=== PATIENT | female | born 1970 | race Caucasian/White ===

== ENCOUNTER 2017-10-16 12:16 | Emergency (ER) | payer SELFPAY ==
[~2017-10-16] VITALS: Ht 160 cm; Wt 81.6 kg
[2017-10-16] MEDS ORDERED: GABA-488 PO (12:37)
[2017-10-16] MEDS ORDERED: ESCI20TA PO (12:37)
[2017-10-16] MEDS ORDERED: DULO60CA6 PO (12:37)
[2017-10-16] MEDS ORDERED: ACHD5005 PO (12:37)
--- NOTE | 2017-10-16 12:57 | ED Fall/Injury ---
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 patient c/o pain in her buttocks also Source: patient Exam Limitations: no limitations History of Present Illness Date Seen by Provider: Oct 16, 2017 Time Seen by Provider: 12:54 Initial Comments To ER per private vehicle with reports of falling off her porch about 3 hours ago. She slipped as the porch was wet. Complains of pain to the right shoulder in the low back. Low back pain radiates to the right buttock and posterior thigh. By the pain in her chest. She reports she is diffusely sore and achy and feels like she just tensed up all over she states. She did hit the back of her head but denies loss of consciousness, headache, nausea or neck pain. Occurred: this morning Severity: moderate Allergies and Home Medications Allergies Coded Allergies: No Known Drug Allergies (Unverified , 04/19/11) Home Medications Duloxetine HCl 60 Mg Capsule.dr, 60 MG PO, (Reported) Escitalopram Oxalate 20 Mg Tablet, 20 MG PO, (Reported) Gabapentin 300 Mg Capsule, 300 MG PO TID, (Reported) Hydrocodone Bit/Acetaminophen 1 Tab Tab, 1 TAB PO, (Reported) Constitutional: see HPI Eyes: No Symptoms Reported Ears, Nose, Mouth, Throat: no symptoms reported Respiratory: no symptoms reported Cardiovascular: no symptoms reported Genitourinary: no symptoms reported Musculoskeletal: see HPI Skin: no symptoms reported Psychiatric/Neurological: No Symptoms Reported Past Tlgcanm-Ohrvvy-Evphzx Hx Patient Social History Alcohol Use: Occasionally Uses Recreational Drug Use: Yes Drug of Choice: thc Smoking Status: Current Everyday Smoker Recent Foreign Travel: No Contact w/Someone Who Travel: No Recent Infectious Disease Expo: No Physical Abuse: No Sexual Abuse: No Psychosocial Suicide Risk Score: 0 Physical Exam Vital Signs Vital Sign - Last 12Hours 10/16/17 12:32 Temp 98.4 Pulse 79 Resp 18 B/P (MAP) 141/99 (113) Pulse Ox 99 Capillary Refill : Less Than 3 Seconds General Appearance: WD/WN, no apparent distress HEENT: PERRL/EOMI, normal ENT inspection Neck: non-tender, full range of motion Respiratory: normal breath sounds, no respiratory distress, no accessory muscle use Gastrointestinal: normal bowel sounds, non tender, soft Extremities: normal range of motion, non-tender, other (there is no ecchymosis abrasion or erythema to the shoulder or the back. No hematoma to the scalp.) Neurologic/Psychiatric: alert, normal mood/affect, oriented x 3 Skin: normal color, warm/dry [place] Coma Score Best Eye Response: (4) Open Spontaneously Best Verbal Response: (5) Oriented Best Motor Response: (6) Obeys Commands Rudi Total: 15 Progress/Results/Core Measures Results/Orders My Orders Orders - DERECK KING APRN Ketorolac Injection (Toradol Injection) (10/16/17 13:00) Orphenadrine Injection (Norflex Injectio (10/16/17 13:00) Shoulder, Right, 3 Views (10/16/17 12:53) Chest Pa/Lat (2 View) (10/16/17 12:53) Ct Lumbar Spine Wo (10/16/17 12:53) Saline Lock/Iv-Start (10/16/17 12:53) Medications Given in ED Current Medications Medications Dose Ordered Sig/Ventura Route Start Time Stop Time Status Last Admin Dose Admin Ketorolac Tromethamine 30 mg ONCE ONCE IVP 10/16/17 13:00 10/16/17 13:01 DC 10/16/17 13:05 30 MG Vital Signs/I&O Vital Sign - Last 12Hours 10/16/17 12:32 Temp 98.4 Pulse 79 Resp 18 B/P (MAP) 141/99 (113) Pulse Ox 99 Blood Pressure Mean: 113 Diagnostic Imaging Diagonstic Imaging: CT Comments NAME: ED[facility] REC#: [id number] PT STATUS: REG ER : 1970 PHYSICIAN: DERECK KING APRN ADMIT DATE: 10/16/17/ER Draft Date of Exam:10/16/17 CT LUMBAR SPINE WO PROCEDURE: CT lumbar spine without contrast. TECHNIQUE: Multiple contiguous axial images were obtained through the lumbar spine without the use of intravenous contrast. Sagittal and coronal reformations were then performed. INDICATION: Followup for 3 hours ago. Back pain. FINDINGS: CT lumbar spine with sagittal and coronal reformatted imaging shows good alignment of vertebral bodies. Body height is well maintained without evidence of compression fractures. There is chronic disc herniation at L4-L5 with calcification of the annulus. This is causing moderate encroachment upon the lateral recesses bilaterally. There is considerable facet and ligamentous hypertrophy as well as at this level. There is a small chronic central disc herniation at L5-S1. There is hypertrophy of the facets and endplates which is causing a mild to moderate foraminal encroachment on the left. The surrounding soft tissues appear normal. IMPRESSION: 1. Long-standing disc herniation with calcification of the annulus of L4-L5 with associated facet and ligamentous hypertrophy causing moderate encroachment upon the lateral recesses. 2. Chronic disc herniation L5-S1 as well with facet and ligamentous hypertrophy and endplate hypertrophy causing mild to moderate encroachment upon the left neural foramen. 3. No evidence of acute fractures. Dictated on workstation # [id number] Dict: 10/16/17 1328 Trans: 10/16/17 1343 [facility] [id number] Interpreted by: NASIM MAJOR MD Electronically signed by: Departure Impression Impression: Primary Impression: Fall Disposition: 01 HOME, SELF-CARE Condition: Stable Departure-Patient Inst. Decision time for Depature: 12:56 Referrals: [facility] (PCP/Family) Primary Care Physician Patient Instructions: Contusion (DC) Add. Discharge Instructions: 1. Return to ER for any concerns 2. Follow-up with your doctor next week 3. All discharge instructions reviewed with patient and/or family. Voiced understanding. DEERCK KING APRN Oct 16, 2017 12:57
[2017-10-16] MEDS ORDERED: ORPHENADRINE 60 MG/2 ML (NORFLEX) AMP IVP ONE (13:00)
[2017-10-16] MEDS ORDERED: KETOROLAC 30 MG/ML VIAL IVP ONE (13:00)
--- NOTE | 2017-10-16 13:19 | Diagnostic Imaging Report ---
INDICATION: Fall from porch 3 hours ago. Back pain FINDINGS: PA and lateral chest show the lungs to be well-aerated. There are no infiltrates. No masses. No pneumothorax or pleural effusion. Heart is not enlarged. No bony fractures demonstrated. IMPRESSION: Normal PA and lateral chest. Dictated by: Dictated on workstation # [id number]
--- NOTE | 2017-10-16 13:24 | Diagnostic Imaging Report ---
INDICATION: Fall off a porch. Right shoulder pain. FINDINGS: Three views. There are no fractures or dislocations. The humeral head is in good alignment with the glenoid. AC joint shows good alignment. There is moderate hypertrophic degenerative change of the AC joint. There is small amount of calcification in the distal supraspinatus tendon. IMPRESSION: 1. No acute abnormalities. 2. Degenerative change of the AC joint as well as some calcific tendinopathy of the supraspinatus tendon. Dictated by: Dictated on workstation # [id number]
--- NOTE | 2017-10-16 13:43 | Diagnostic Imaging Report ---
PROCEDURE: CT lumbar spine without contrast. TECHNIQUE: Multiple contiguous axial images were obtained through the lumbar spine without the use of intravenous contrast. Sagittal and coronal reformations were then performed. INDICATION: Followup for 3 hours ago. Back pain. FINDINGS: CT lumbar spine with sagittal and coronal reformatted imaging shows good alignment of vertebral bodies. Body height is well maintained without evidence of compression fractures. There is chronic disc herniation at L4-L5 with calcification of the annulus. This is causing moderate encroachment upon the lateral recesses bilaterally. There is considerable facet and ligamentous hypertrophy as well as at this level. There is a small chronic central disc herniation at L5-S1. There is hypertrophy of the facets and endplates which is causing a mild to moderate foraminal encroachment on the left. The surrounding soft tissues appear normal. IMPRESSION: 1. Long-standing disc herniation with calcification of the annulus of L4-L5 with associated facet and ligamentous hypertrophy causing moderate encroachment upon the lateral recesses. 2. Chronic disc herniation L5-S1 as well with facet and ligamentous hypertrophy and endplate hypertrophy causing mild to moderate encroachment upon the left neural foramen. 3. No evidence of acute fractures. Dictated by: Dictated on workstation # [id number]
[2017-10-16 13:50] VITALS: BP 141/99
== END 2017-10-16 13:50 | disposition home or self-care (01) ==
LOC: EDUNIT# 12:16 → ER 12:17
DX: M25.511 Pain in right shoulder (principal); M54.5 Low back pain; M79.651 Pain in right thigh; R07.89 Other chest pain; F12.90 Cannabis use, unspecified, uncomplicated; F17.200 Nicotine dependence, unspecified, uncomplicated; W19.XXXA Unspecified fall, initial encounter
CPT/HCPCS: 71046; 72131; 73030; 96374; 96375; 99282

== ENCOUNTER → 2017-10-25 | Outpatient (CLI) | payer SELFPAY ==
[~2017-10-25] MED LIST: ACHD5005 PO; DULO60CA6 PO; ESCI20TA PO; GABA-488 PO
--- NOTE | 2017-10-25 10:06 | Diagnostic Imaging Report ---
PROCEDURE: CT head without contrast. TECHNIQUE: Multiple contiguous axial images were obtained through the brain without the use of intravenous contrast. INDICATION: Syncope and family history of seizures with recent fall. FINDINGS: The ventricles and sulci are within normal limits. There is no hydrocephalus or cerebral edema. There is no midline shift or mass effect. There is no intracranial mass, hemorrhage, or extra-axial fluid collection. The visualized paranasal sinuses and mastoid air cells are clear. There are no regional areas of decreased attenuation appreciated to suggest an acute CVA. IMPRESSION: No acute intracranial abnormality. Dictated by: Dictated on workstation # [id number]
== END ==
LOC: RAD 08:56
PROVIDERS: ATTEND Nurse Practitioner Community Health
DX: R55 Syncope and collapse (principal); Z87.828 Personal history of other (healed) physical injury and trauma; Z82.0 Family history of epilepsy and other diseases of the nervous system
CPT/HCPCS: 70450

== ENCOUNTER 2017-10-26 16:37 | Emergency (ER) | payer SELFPAY ==
[~2017-10-26] VITALS: Ht 160 cm; Wt 85.7 kg
--- OUTSIDE RECORDS SUMMARY | 2017-10-26 16:44 | XMS REPORT | Continuity of Care Document ---
Author Author [facility] Organization [facility] Address Unknown Phone Unavailable Allergies Active Description Code Type Severity Reaction Onset Reported/Identified Relationship to Patient Clinical Status Yes No Known Drug Allergies [id number] Drug Allergy Unknown N/A 04/19/2011 Medications There is no data. Problems Date Dx Coded Attending Type Code Diagnosis Diagnosed By 04/19/2011 Ot 276.50 04/19/2011 Ot 276.8 04/19/2011 Ot 780.2 04/19/2011 Ot 992.5 04/19/2011 Ot E000.8 04/19/2011 Ot E900.0 10/08/2015 Ot V76.12 10/17/2015 Ot V76.12 10/16/2017 AMARJIT TOLEDOP Ot S43.431A SUPERIOR GLENOID LABRUM LESION OF RIGHT 10/16/2017 AMARJIT TOLEDO COMMUNICATIONS OFFICER Ot X58.XXXA EXPOSURE TO OTHER SPECIFIED FACTORS, INI 10/16/2017 AMARJIT TOLEDO COMMUNICATIONS OFFICER Ot Y99.8 OTHER EXTERNAL CAUSE STATUS 10/16/2017 AMARJIT TOLEDO COMMUNICATIONS OFFICER Ot S43.431A SUPERIOR GLENOID LABRUM LESION OF RIGHT 10/16/2017 AMARJIT TOLEDO COMMUNICATIONS OFFICER Ot X58.XXXA EXPOSURE TO OTHER SPECIFIED FACTORS, INI 10/16/2017 AMARJIT TOLEDO COMMUNICATIONS OFFICER Ot Y99.8 OTHER EXTERNAL CAUSE STATUS 10/19/2017 DERECK KING APRN Ot F12.90 CANNABIS USE, UNSPECIFIED, UNCOMPLICATED 10/19/2017 DERECK KING ROTOR PLATE WASHER Ot F17.200 NICOTINE DEPENDENCE, UNSPECIFIED, UNCOMP 10/19/2017 DERECK KING APRN Ot M25.511 PAIN IN RIGHT SHOULDER 10/19/2017 DERECK KING APRN Ot M54.5 LOW BACK PAIN 10/19/2017 DERECK KING APRN Ot M79.651 PAIN IN RIGHT THIGH 10/19/2017 DERECK KING ROTOR PLATE WASHER Ot R07.89 OTHER CHEST PAIN 10/19/2017 DERECK KING APRN Ot W19.XXXA UNSPECIFIED FALL, INITIAL ENCOUNTER Procedures There is no data. Results There is no data. Encounters ACCT No. Visit Date/Time Discharge Status Pt. Type Provider Facility Loc./Unit Complaint [id number] 10/16/2017 12:17:00 10/16/2017 13:50:00 DIS Outpatient DERECK KING APRN [facility] ER FALL OFF PORCH, HEAD/BACK/ LEGS/ARMS INJ [id number] 10/17/2015 15:20:00 10/17/2015 23:59:59 CLS Outpatient AMARJIT TOLEDO [facility] RAD RTC TEAR [id number] 10/25/2017 09:45:00 PEN Preadmit DYLON BERNAL [facility] RAD R55 SYNCOPE [id number] 04/07/2012 15:15:00 Document Registration [id number] 04/19/2011 21:24:00 Document Registration
[2017-10-26] MEDS ORDERED: KETOROLAC 30 MG/ML VIAL IVP ONE (17:30)
--- NOTE | 2017-10-26 17:36 | ED Neurological Problem ---
General Chief Complaint: Trauma-Non Activation Stated Complaint: SEIZURES/HEAD INJ Nursing Triage Note: AMB TO ROOM REPORTS APX 2 WEEKS FELL WAS SEEN IN ED AT THAT TIME HAD FOLLOW UP WIHT [facility] THINK MAYBE SHE IS HAVING SEIZURES. HAD CT SCAN YESTERDAY. TODAY WAS IN SHOWER WHEN FELT LIKE EVERYTHING WENT [place] AND WOKE UP ON SHOWER FLOOR. HEMATOMA TO L FOREHEAD AND OPENED ABRASION UP FROM L KNEE FROM PREVIOUS FALL. Nursing Sepsis Screen: No Definite Risk Source: patient, family Exam Limitations: no limitations History of Present Illness Date Seen by Provider: Oct 26, 2017 Time Seen by Provider: 17:32 Initial Comments To ER with reports of a head injury. She was here about 2 weeks ago after she fell off her porch. Complains of some pain in her low back and she did strike her head but had no headache or neurologic symptoms. She was discharged home. Last week, she began having headaches and would randomly fall to the floor. She had a repeat outpatient CT head done yesterday which showed no abnormalities. Since then she has fallen again in the shower striking the left side of the forehead where she now has a hematoma and a black eye. Currently she rates her headache at 10 out of 10. Timing/Duration: 1 week Severity: moderate Associated Symptoms: nausea/vomiting Allergies and Home Medications Allergies Coded Allergies: No Known Drug Allergies (Unverified , 04/19/11) Home Medications Duloxetine HCl 60 Mg Capsule.dr, 60 MG PO, (Reported) Escitalopram Oxalate 20 Mg Tablet, 20 MG PO, (Reported) Gabapentin 300 Mg Capsule, 300 MG PO TID, (Reported) Hydrocodone Bit/Acetaminophen 1 Tab Tab, 1 TAB PO, (Reported) Constitutional: see HPI Eyes: No Symptoms Reported Ears, Nose, Mouth, Throat: no symptoms reported Respiratory: no symptoms reported, No dyspnea on exertion, No short of breath Cardiovascular: no symptoms reported, see HPI, No chest pain, No Hx of Intervention, No palpitations, syncope, No vascular heart diseas Genitourinary: no symptoms reported Musculoskeletal: no symptoms reported Skin: no symptoms reported Psychiatric/Neurological: See HPI, Headache Past Stemdrc-Pryesd-Vflyfz Hx Patient Social History Alcohol Use: Denies Use Recreational Drug Use: No Drug of Choice: thc Smoking Status: Never a Smoker Recent Foreign Travel: No Contact w/Someone Who Travel: No Recent Infectious Disease Expo: No Surgeries History of Surgeries: No Integumentary History of Skin or Integumenta: No Physical Exam Vital Signs Vital Sign - Last 12Hours 10/26/17 17:03 Temp 98.6 Pulse 87 Resp 18 B/P (MAP) 131/94 (106) Pulse Ox 99 O2 Delivery Room Air Capillary Refill : Less Than 3 Seconds General Appearance: WD/WN, no apparent distress HEENT: PERRL/EOMI, normal ENT inspection, TMs normal, other (there is large hematoma to the left side of the forehead and left lower eyelid) Neck: non-tender, full range of motion Respiratory: no respiratory distress, no accessory muscle use Cardiovascular: regular rate, rhythm, no murmur Gastrointestinal: normal bowel sounds, non tender, soft Extremities: normal range of motion, non-tender Neurologic/Psychiatric: alert, normal mood/affect, oriented x 3 Crainal Nerves: normal hearing, normal speech, PERRL Skin: normal color, warm/dry Progress/Results/Core Measures Results/Orders Lab Results Laboratory Tests Test 10/26/17 17:51 10/26/17 18:06 Range/Units Urine Color YELLOW Urine Clarity CLEAR Urine pH 6 5-9 Urine Specific [place] 1.010 L 1.016-1.022 Urine Protein NEGATIVE NEGATIVE Urine Glucose (UA) NEGATIVE NEGATIVE Urine Ketones NEGATIVE NEGATIVE Urine Nitrite NEGATIVE NEGATIVE Urine Bilirubin NEGATIVE NEGATIVE Urine Urobilinogen NORMAL NORMAL MG/DL Urine Leukocyte Esterase NEGATIVE NEGATIVE Urine RBC (Auto) NEGATIVE NEGATIVE Urine RBC NONE /HPF Urine WBC 2-5 /HPF Urine Squamous Epithelial Cells 5-10 /HPF Urine Crystals NONE /LPF Urine Bacteria MODERATE H /HPF Urine Casts NONE /LPF Urine Mucus NEGATIVE /LPF Urine Culture Indicated YES Urine Opiates Screen POSITIVE H NEGATIVE Urine Oxycodone Screen NEGATIVE NEGATIVE Urine Methadone Screen NEGATIVE NEGATIVE Urine Propoxyphene Screen NEGATIVE NEGATIVE Urine Barbiturates Screen NEGATIVE NEGATIVE Ur Tricyclic Antidepressants Screen NEGATIVE NEGATIVE Urine Phencyclidine Screen NEGATIVE NEGATIVE Urine Amphetamines Screen NEGATIVE NEGATIVE Urine Methamphetamines Screen NEGATIVE NEGATIVE Urine Benzodiazepines Screen NEGATIVE NEGATIVE Urine Cocaine Screen NEGATIVE NEGATIVE Urine Cannabinoids Screen POSITIVE H NEGATIVE White Blood Count 8.7 4.3-11.0 10^3/uL Red Blood Count 4.60 4.35-5.85 10^6/uL Hemoglobin 13.8 11.5-16.0 G/DL Hematocrit 40 35-52 % Mean Corpuscular Volume 87 80-99 FL Mean Corpuscular Hemoglobin 30 25-34 PG Mean Corpuscular Hemoglobin Concent 34 32-36 G/DL Red Cell Distribution Width 13.1 10.0-14.5 % Platelet Count 273 130-400 10^3/uL Mean Platelet Volume 10.1 7.4-10.4 FL Neutrophils (%) (Auto) 52 42-75 % Lymphocytes (%) (Auto) 36 12-44 % Monocytes (%) (Auto) 10 0-12 % Eosinophils (%) (Auto) 1 0-10 % Basophils (%) (Auto) 1 0-10 % Neutrophils # (Auto) 4.5 1.8-7.8 X 10^3 Lymphocytes # (Auto) 3.1 1.0-4.0 X 10^3 Monocytes # (Auto) 0.9 0.0-1.0 X 10^3 Eosinophils # (Auto) 0.1 0.0-0.3 10^3/uL Basophils # (Auto) 0.1 0.0-0.1 10^3/uL Sodium Level 137 135-145 MMOL/L Potassium Level 4.1 3.6-5.0 MMOL/L Chloride Level 106 98-107 MMOL/L Carbon Dioxide Level 19 L 21-32 MMOL/L Anion Gap 12 5-14 MMOL/L Blood Urea Nitrogen 8 7-18 MG/DL Creatinine 0.78 0.60-1.30 MG/DL Estimat Glomerular Filtration Rate > 60 BUN/Creatinine Ratio 10 Glucose Level 113 H 70-105 MG/DL Calcium Level 9.5 8.5-10.1 MG/DL Total Bilirubin 0.5 0.1-1.0 MG/DL Aspartate Amino Transf (AST/SGOT) 19 5-34 U/L Alanine Aminotransferase (ALT/SGPT) 14 0-55 U/L Alkaline Phosphatase 94 40-136 U/L Total Protein 7.7 6.4-8.2 GM/DL Albumin 4.2 3.2-4.5 GM/DL My Orders Orders - DERECK KING TIP PRINTER Cbc With Automated Diff (10/26/17 17:30) Comprehensive Metabolic Panel (10/26/17 17:30) Ct Head/Cervical Spine Wo (10/26/17 17:30) Saline Lock/Iv-Start (10/26/17 17:30) Ua Culture If Indicated (10/26/17 17:30) Drug Screen Stat (Urine) (10/26/17 17:30) Ekg Tracing (10/26/17 17:30) Ketorolac Injection (Toradol Injection) (10/26/17 17:30) Urine Culture (10/26/17 17:51) Medications Given in ED Current Medications Medications Dose Ordered Sig/Ventura Route Start Time Stop Time Status Last Admin Dose Admin Ketorolac Tromethamine 30 mg ONCE ONCE IVP 10/26/17 17:30 10/26/17 17:32 DC 10/26/17 18:04 30 MG Vital Signs/I&O Vital Sign - Last 12Hours 10/26/17 17:03 Temp 98.6 Pulse 87 Resp 18 B/P (MAP) 131/94 (106) Pulse Ox 99 O2 Delivery Room Air Blood Pressure Mean: 106 Departure Impression Impression: Primary Impression: Postconcussion syndrome Disposition: 01 HOME, SELF-CARE Condition: Stable Departure-Patient Inst. Decision time for Depature: 19:00 Referrals: [facility] (PCP/Family) Primary Care Physician Patient Instructions: Concussion, Adult (DC) Add. Discharge Instructions: 1. Tylenol and Motrin for headaches 2. Return to ER for any worsening symptoms 3. Follow-up with [facility]. No driving at all until you have been cleared to do so. All discharge instructions reviewed with patient and/or family. Voiced understanding. DERECK KING APRN Oct 26, 2017 17:35
[2017-10-26 17:59] LABS: BILIRUBIN,URINE NEGATIVE (NEGATIVE); CLARITY,URINE CLEAR; COLOR,URINE YELLOW; GLUCOSE, URINE (UA) NEGATIVE (NEGATIVE); KETONES,URINE NEGATIVE (NEGATIVE); LEUKOCYTE ESTERASE ,URINE NEGATIVE (NEGATIVE); NITRITE,URINE NEGATIVE (NEGATIVE); PH,URINE 6 (5-9); PROTEIN,URINE NEGATIVE (NEGATIVE); UROBILINOGEN,URINE NORMAL (NORMAL)
[2017-10-26 18:14] LABS: AMPHETAMINE SCREEN, URINE NEGATIVE (NEGATIVE); BARBITURATE SCREEN URINE NEGATIVE (NEGATIVE); BENZODIAZEPINES SCREEN URINE NEGATIVE (NEGATIVE); CANNABINOID SCREEN, URINE POSITIVE (NEGATIVE); COCAINE SCREEN URINE NEGATIVE (NEGATIVE); METHADONE STAT NEGATIVE (NEGATIVE); METHAMPHETAMINE SCREEN URINE S NEGATIVE (NEGATIVE); OPIATE SCREEN URINE POSITIVE (NEGATIVE); OXYCODONE STAT NEGATIVE (NEGATIVE); PROPOXYPHENE STAT NEGATIVE (NEGATIVE); TRICYCLIC ANTIDEPRESSANTS SCRE NEGATIVE (NEGATIVE)
[2017-10-26 18:16] LABS: BACTERIA,URINE MODERATE /HPF
[2017-10-26 18:24] LABS: BASOPHILS # (AUTO) 0.1 10^3/uL (0.0-0.1); BASOPHILS % (AUTO) 1 % (0-10); EOSINOPHILS # (AUTO) 0.1 10^3/uL (0.0-0.3); EOSINOPHILS % (AUTO) 1 % (0-10); HEMATOCRIT 40 % (35-52); HEMOGLOBIN 13.8 G/DL (11.5-16.0); LYMPHOCYTES # (AUTO) 3.1 X 10^3 (1.0-4.0); LYMPHOCYTES % (AUTO) 36 % (12-44); MEAN CORPUSCULAR HEMOGLOBIN 30 PG (25-34); MEAN CORPUSCULAR HGB CONC 34 G/DL (32-36); MEAN CORPUSCULAR VOLUME 87 FL (80-99); MEAN PLATELET VOLUME 10.1 FL (7.4-10.4); MONOCYTES # (AUTO) 0.9 X 10^3 (0.0-1.0); MONOCYTES % (AUTO) 10 % (0-12); NEUTROPHILS # (AUTO) 4.5 X 10^3 (1.8-7.8); NEUTROPHILS % (AUTO) 52 % (42-75); PLATELET COUNT 273 10^3/uL (130-400); RED CELL DISTRIBUTION WIDTH 13.1 % (10.0-14.5); WHITE BLOOD COUNT 8.7 10^3/uL (4.3-11.0)
--- NOTE | 2017-10-26 18:38 | Diagnostic Imaging Report ---
PROCEDURE: CT head and CT cervical spine without contrast. TECHNIQUE: Multiple contiguous axial images were obtained through the brain and cervical spine without the use of intravenous contrast. Sagittal and coronal reformations through the cervical spine were then performed. INDICATION: Fall with facial bruising. COMPARISON: CT head of 10/25/2017. FINDINGS: CT head: No hyperdense hemorrhage or space-occupying mass. No hydrocephalus or midline shift. No findings of acute territorial infarct. No fracture. Paranasal sinuses and mastoid air cells are clear. CT cervical spine: There is no acute fracture or traumatic malalignment in the cervical spine. Multilevel posterior disc osteophyte complexes cause [id number] spinal stenosis, greatest from C3-C4 through C5-C6. The thyroid is mildly heterogeneous in appearance without discrete mass. No cervical lymphadenopathy. Lung apices are clear. IMPRESSION: 1. No acute intracranial process or skull fracture. 2. No fracture or traumatic malalignment of the cervical spine. 3. Multilevel degenerative disc disease in the cervical spine results in mild to moderate spinal stenosis at multiple levels. Dictated by: Dictated on workstation # [id number]
[2017-10-26 18:54] LABS: ALANINE AMINOTRANSFERASE 14 U/L (0-55); ALBUMIN 4.2 GM/DL (3.2-4.5); ALKALINE PHOSPHATASE 94 U/L (40-136); BILIRUBIN,TOTAL 0.5 MG/DL (0.1-1.0); BUN/CREATININE RATIO 10; CALCIUM 9.5 MG/DL (8.5-10.1); CARBON DIOXIDE 19 MMOL/L (21-32); CHLORIDE 106 MMOL/L (98-107); CREATININE SERUM 0.78 MG/DL (0.60-1.30); GFR ESTIMATED > 60; GLUCOSE 113 MG/DL (70-105); POTASSIUM 4.1 MMOL/L (3.6-5.0); SODIUM 137 MMOL/L (135-145); TOTAL PROTEIN 7.7 GM/DL (6.4-8.2)
[2017-10-26 19:20] VITALS: BP 131/87
== END 2017-10-26 19:16 | disposition home or self-care (01) ==
LOC: EDUNIT# 16:37 → ER 16:38
DX: F07.81 Postconcussional syndrome (principal); W13.8XXA Fall from, out of or through other building or structure, initial encounter
CPT/HCPCS: 36415; 70450; 72125; 80053; 80306; 81000; 85025; 87088; 87186; 93005; 96374

== ENCOUNTER → 2018-07-23 | Outpatient (CLI) | payer OTHER ==
[~2018-07-23] MED LIST changes: +METH-313 PO; +PRD20T PO
--- NOTE | 2018-07-23 14:49 | Diagnostic Imaging Report ---
PROCEDURE: MRI lumbar spine. TECHNIQUE: Multiplanar, multisequence MRI of the lumbar spine was performed without contrast. INDICATION: Fall one year ago now with pain. While I have no previous for direct comparison study correlated with a CT of the lumbar spine performed 10/16/2017. Lumbar body heights are stable. The alignment is anatomic. Marrow signal intensity unremarkable. Bulging disc material posteriorly at L4-L5 shown to be calcified on prior CT, indents the ventral thecal sac and in conjunction with ligamentum flavum thickening results in a moderate degree of canal stenosis. This is not convincingly changed from prior the neural foramina bilaterally appeared mildly stenosed. The L5-S1 disc shows desiccation, loss of stature and bulging posteriorly shown to be partly calcified on earlier CT. This effaces the ventral epidural fat. There is a trefoil stenosis of the thecal sac predominately owing to prominence of the epidural fat circumferential to the sac at this level as a chronic finding. Disc material mildly narrows the neural foramina bilaterally left somewhat greater than right. At L3-L4 there is thickening of the ligament flavum, mild prominence of the dorsal epidural fat with mild canal stenosis but no foraminal narrowing. The L2-L3 and L1-L2 and the T12-L1 levels revealed no stenosis. IMPRESSION: Stable alignment. No fracture or acute bony pathology, bulging disc material, prominence of the epidural fat and thickening of ligamenta flava with resultant canal and foraminal stenoses at L4-L5 and L5-S1 as described. Normal alignment. No acute appearing abnormality and when correlated with previous CT no obvious change. Dictated by: Dictated on workstation # [id number]
--- NOTE | 2018-07-23 15:16 | Diagnostic Imaging Report ---
INDICATION: Fall one year ago, pain. EXAMINATION: MRI of the thoracic spine without contrast. FINDINGS: The thoracic vertebral body heights are maintained, their alignment is anatomic. The marrow signal intensity is unremarkable. Thoracic spinal cord has a normal volume, normal morphology and normal signal intensity. CSF circumscribes the cord at each vertebral body and disc space level. Some bulging of the disc and endplate osteophytes at T11-T12 result in minimal effacement of the thecal sac but likely an insignificant degree of canal narrowing. The neural foramen appears widely patent at each level. No ligamentous injury. No bone contusion or fracture. IMPRESSION: Mild lower thoracic spondylosis without stenosis. Normal cord. Normal alignment. No acute or chronic fracture pattern. Dictated by: Dictated on workstation # [id number]
== END ==
LOC: RAD 12:51
PROVIDERS: ATTEND Orthopaedic Surgery Orthopaedic Surgery of the Spine
DX: M48.061 Spinal stenosis, lumbar region without neurogenic claudication (principal); M48.07 Spinal stenosis, lumbosacral region; M99.73 Connective tissue and disc stenosis of intervertebral foramina of lumbar region; M51.26 Other intervertebral disc displacement, lumbar region; M47.814 Spondylosis without myelopathy or radiculopathy, thoracic region
CPT/HCPCS: 72146; 72148

== ENCOUNTER → 2018-07-26 | Outpatient (CLI) | payer OTHER ==
--- NOTE | 2018-07-26 14:16 | Diagnostic Imaging Report ---
PROCEDURE: MR imaging of the brain without contrast. TECHNIQUE: Multiplanar, multisequence MR imaging of the brain was performed without contrast. INDICATION: Pain after fall. FINDINGS: The ventricles and sulci are within normal limits. There is no hydrocephalus. There is no midline shift. There is no intracranial mass, hemorrhage or extra-axial fluid collection. There are no areas of diffusion restriction appreciated to suggest an acute CVA. There are few tiny foci of abnormal increased T2 signal intensity within the subcortical white matter. The sinuses and mastoid air cells are clear. The globes and intraorbital structures are unremarkable. IMPRESSION: 1. No acute intracranial abnormality. 2. Few tiny foci of abnormal increased T2 signal intensity within subcortical white matter. These are nonspecific however may reflect some mild chronic microvascular ischemic disease. Dictated by: Dictated on workstation # [id number]
--- NOTE | 2018-07-26 14:37 | Diagnostic Imaging Report ---
PROCEDURE: MR imaging cervical spine without contrast. TECHNIQUE: Multiplanar, multisequence MR imaging of the cervical spine was performed without contrast. INDICATION: Fall with neck pain. COMPARISON: No prior studies are available for comparison. FINDINGS: There is slight reversal of the normal cervical lordotic curvature, centered at approximately the C4-C5 level. Vertebral body marrow signal is normal. No geographic marrow lesion is seen. There is multilevel degenerative disc disease with disc space narrowing and marginal spurring. C2-C3: Central canal and neural foramina are widely patent. C3-C4: There are endplate osteophytes and uncovertebral joint degenerative changes resulting in [id number] bilateral neuroforaminal narrowing. No significant central canal narrowing is seen. C4-C5: Broad-based disc/osteophyte complex indents the ventral thecal sac and spinal cord producing significant narrowing of the central canal. AP dimension of the canal is 4-5 mm. There is significant bilateral neuroforaminal stenosis. C5-C6: Prominent broad-based disc/osteophyte complex slightly asymmetric to the right is seen resulting in significant central canal stenosis as well as right lateral recess and right neuroforaminal stenosis. Left neural foramen is patent. C6-C7: Endplate osteophytes indent the ventral thecal sac, but no significant central canal narrowing is seen. Uncovertebral joint degenerative change does result in moderate right neuroforaminal stenosis. Left neural foramen is patent. C7-T1: No central canal or neuroforaminal stenosis is seen. There is thinning of the spinal cord at the areas of greatest stenosis at the C4-C5 and C5-C6 levels. There is also minimal increased signal within the spinal cord at these levels. This could be secondary to myelomalacia versus minimal edema. No other abnormality is seen. IMPRESSION: Cervical spondylosis with significant central canal stenosis at the C4-C5 and C5-C6 levels. There is also multilevel neuroforaminal narrowing described level by level above. There are some signal changes and thinning of the spinal cord as described, likely on the basis of myelomalacia. Dictated by: Dictated on workstation # [id number]
== END ==
LOC: RAD 12:54
PROVIDERS: ATTEND Orthopaedic Surgery Orthopaedic Surgery of the Spine
DX: M48.02 Spinal stenosis, cervical region (principal); M53.82 Other specified dorsopathies, cervical region; M25.78 Osteophyte, vertebrae; M99.71 Connective tissue and disc stenosis of intervertebral foramina of cervical region; M47.22 Other spondylosis with radiculopathy, cervical region; M50.10 Cervical disc disorder with radiculopathy, unspecified cervical region; R51 Headache; M48.061 Spinal stenosis, lumbar region without neurogenic claudication; W19.XXXA Unspecified fall, initial encounter
CPT/HCPCS: 70551; 72141

== ENCOUNTER 2022-01-08 13:34 | Observation (INO) | payer SELFPAY ==
[~2022-01-08] VITALS: Ht 152.4 cm; Wt 88.3 kg
[~2022-01-08 13:34] MED LIST changes: +CYCL10TA25 PO; -DULO60CA6 PO; +DULO60CA7 PO
[2022-01-08 13:58] LABS: BASOPHILS # (AUTO) 0.1 10^3/uL (0.0-0.1); BASOPHILS % (AUTO) 1 % (0-10); EOSINOPHILS # (AUTO) 0.1 10^3/uL (0.0-0.3); EOSINOPHILS % (AUTO) 3 % (0-10); HEMATOCRIT 37 % (35-52); HEMOGLOBIN 12.4 g/dL (11.5-16.0); LYMPHOCYTES # (AUTO) 2.1 10^3/uL (1.0-4.0); LYMPHOCYTES % (AUTO) 40 % (12-44); MEAN CORPUSCULAR HEMOGLOBIN 30 pg (25-34); MEAN CORPUSCULAR HGB CONC 33 g/dL (32-36); MEAN CORPUSCULAR VOLUME 90 fL (80-99); MEAN PLATELET VOLUME 10.3 fL (9.0-12.2); MONOCYTES # (AUTO) 0.5 10^3/uL (0.0-1.0); MONOCYTES % (AUTO) 10 % (0-12); NEUTROPHILS # (AUTO) 2.5 10^3/uL (1.8-7.8); NEUTROPHILS % (AUTO) 47 % (42-75); PLATELET COUNT 174 10^3/uL (130-400); WHITE BLOOD COUNT 5.3 10^3/uL (4.3-11.0)
[2022-01-08 14:00] LABS: ALBUMIN 4.2 GM/DL (3.2-4.5); CHLORIDE 106 MMOL/L (98-107); POTASSIUM 4.5 MMOL/L (3.6-5.0); SODIUM 140 MMOL/L (135-145)
[2022-01-08 14:01] LABS: CALCIUM 9.2 MG/DL (8.5-10.1)
[2022-01-08 14:02] LABS: GLUCOSE 112 MG/DL (70-105)
[2022-01-08 14:03] LABS: CARBON DIOXIDE 22 MMOL/L (21-32)
[2022-01-08 14:04] LABS: BILIRUBIN,TOTAL 0.3 MG/DL (0.1-1.0)
[2022-01-08 14:06] LABS: ALKALINE PHOSPHATASE 93 U/L (40-136); CREATININE SERUM 0.85 MG/DL (0.60-1.30); FIBRIN DEGRADATION PRODUCTS 0.32 UG/ML (0.00-0.49); GFR ESTIMATED 83; INR 0.9 (0.8-1.4)
[2022-01-08 14:07] LABS: BUN/CREATININE RATIO 18
[2022-01-08 14:09] LABS: ALANINE AMINOTRANSFERASE 19 U/L (0-55)
--- NOTE | 2022-01-08 14:14 | Diagnostic Imaging Report ---
EXAMINATION: CT head without contrast. TECHNIQUE: Multiple contiguous axial images were obtained through the brain without the use of intravenous contrast. All CT scans use one or more of the following dose optimizing techniques: automated exposure control, MA and/or KvP adjustment based on patient size and exam type or iterative reconstruction. HISTORY: Slurred speech. Right arm numbness. Dizziness. Concern for acute ischemia. COMPARISON: 10/26/2017. FINDINGS: No large acute territorial ischemia, mass, or hemorrhage. No midline shift or mass effect. The ventricles, cortical sulci, and basilar cisterns are patent and unremarkable. The orbits are normal. Paranasal sinuses are normal. Small amount of fluid is seen in the left mastoid air cells. No soft tissue abnormality is seen. No osseus lesions or fractures are seen. IMPRESSION: 1. No large acute territorial ischemia, mass, or hemorrhage. Dictated by: Dictated on workstation # [id number]
[2022-01-08] MEDS ORDERED: NS 100 ML (IVPB) BAG IV ONE (14:15)
[2022-01-08] MEDS ORDERED: IOHEXOL 350 MG/ML 100 ML (OMNIPAQUE 350) VIAL IV ONE (14:15)
--- NOTE | 2022-01-08 14:20 | Diagnostic Imaging Report ---
PROCEDURE: CT angiography of the head and CT angiography of the neck with and without contrast. TECHNIQUE: Contiguous noncontrast images were obtained from the skull base through the vertex. After intravenous contrast administration, helical CT angiography of the neck was performed. Source data was reformatted into 3D MIP projections. Delayed post contrast acquisition was also obtained. Auto Exposure Controls were utilized during the CT exam to meet ALARA standards for radiation dose reduction. INDICATION: Right-sided weakness. Slurred speech. Dizziness. Concern for acute ischemia. Comparison: CT head performed earlier the same date. FINDINGS: CTA Neck: The visualized portions of the aortic arch demonstrate no evidence of aneurysm or dissection. There is conventional branching pattern of the great vessels of the aorta. The brachiocephalic artery is normal in course and caliber. The right and left common carotid origins are unremarkable. The origin of the left subclavian artery is patent. The common carotid arteries and internal carotid arteries demonstrate a normal course. No stenosis or dissection in the carotid systems. The external carotid arteries are patent and unremarkable. The vertebral arteries are codominant. The origin of the right vertebral artery is seen and is unremarkable. The origin of the left vertebral artery is seen and is unremarkable. There is no focal stenosis seen within the neck. There is no dissection. The vertebral arteries are well visualized to up to the level of the basilar artery. No acute fractures seen in the cervical spine. High-grade spinal canal stenosis is visualized at the C4-C5 level. Included views through the lung apices demonstrate no focal consolidation. CTA brain: The intracranial portion of the bilateral ICA have a normal appearance without stenosis or aneurysm. No stenosis is seen in the bilateral anterior, middle, and posterior cerebral arteries. No evidence of aneurysm the [place]. In the posterior circulation, both of the vertebral arteries demonstrate normal opacification. Both the right and left PICA arteries are identified. The basilar artery is normal in course and caliber. The terminal branch vessels including the superior cerebellar arteries unremarkable. IMPRESSION: 1. No stenosis or aneurysm in the [place]. No evidence of large vessel occlusion. 2. No stenosis or dissection the bilateral carotid and vertebral arteries. 3. High-grade stenosis in the cervical spine at the C4-C5 level. Dictated by: Dictated on workstation # [id number]
[2022-01-08 14:41] LABS: ACETAMINOPHEN < 10 UG/ML (10-30); SALICYLATE < 5.0 MG/DL (5.0-20.0)
[2022-01-08 14:50] LABS: BILIRUBIN,URINE NEGATIVE (NEGATIVE); CLARITY,URINE SL CLOUDY; COLOR,URINE YELLOW; GLUCOSE, URINE (UA) NEGATIVE (NEGATIVE); KETONES,URINE NEGATIVE (NEGATIVE); LEUKOCYTE ESTERASE ,URINE NEGATIVE (NEGATIVE); NITRITE,URINE POSITIVE (NEGATIVE); PROTEIN,URINE NEGATIVE (NEGATIVE)
[2022-01-08 15:00] LABS: TSH (THYROID ANALYZER) 2.77 UIU/ML (0.35-4.94)
[2022-01-08 15:01] LABS: BACTERIA,URINE LARGE /HPF
--- NOTE | 2022-01-08 15:01 | Diagnostic Imaging Report ---
INDICATION: Stroke. COMPARISON: 10/16/2017. FINDINGS: Single frontal view of the chest demonstrates normal heart size and pulmonary vascularity. The lungs are well aerated and clear. No large pleural effusion or pneumothorax is seen. The visualized osseous structures show no acute abnormalities. IMPRESSION: 1. No acute cardiopulmonary process. Dictated by: Dictated on workstation # [id number]
[2022-01-08 15:09] LABS: AMPHETAMINE SCREEN, URINE NEGATIVE (NEGATIVE); BARBITURATE SCREEN URINE NEGATIVE (NEGATIVE); BENZODIAZEPINES SCREEN URINE NEGATIVE (NEGATIVE); CANNABINOID SCREEN, URINE POSITIVE (NEGATIVE); COCAINE SCREEN URINE NEGATIVE (NEGATIVE); METHADONE STAT NEGATIVE (NEGATIVE); METHAMPHETAMINE SCREEN URINE S NEGATIVE (NEGATIVE); OPIATE SCREEN URINE NEGATIVE (NEGATIVE); OXYCODONE STAT NEGATIVE (NEGATIVE); PROPOXYPHENE STAT NEGATIVE (NEGATIVE); TRICYCLIC ANTIDEPRESSANTS SCRE NEGATIVE (NEGATIVE)
[2022-01-08] MEDS ORDERED: cefTRIAXone 1 GM PRE-MIX 50 ML IV STA (15:15)
[2022-01-08] MEDS ORDERED: LACTATED RINGERS 1,000 ML IV ONE ×2 (15:30→19:51)
--- NOTE | 2022-01-08 18:26 | ED Neurological Problem ---
General Chief Complaint: Neuro-Stroke Like Symptoms Stated Complaint: RT ARM NUMBNESS Nursing Triage Note: PT TO ROOM BY [facility]. EMS REPORTS PT WAS AT WORK WHEN SHE BECAME WEAK IN THE LEGS AND HER RIGHT ARM BECAME NUMB. PT ALSO REPORTS FEELING DIZZY AND NAUSEATED. PT STATES SHE FELT NORMAL ALL DAY UNTIL NOON, WHEN SHE STARTED "FEELING DIFFERENT AND STUMBLING OVER THINGS." EMS REPORTS PT HAS HAD NO FALLS OR INJURY RECENTLY AND HAS A BLOOD SUGAR OF 138. PT IS A&OX4 ON ARRIVAL. SPEECH IS MINIMALLY SLURRED Source: patient Exam Limitations: no limitations History of Present Illness Date Seen by Provider: Jan 08, 2022 Time Seen by Provider: 13:40 Initial Comments This 51-year-old woman presents to the emergency room via EMS after having an episode at the [employer] where she works with last known well time at noon. Pat krys states her episode started with lightheadedness and diaphoresis. She then became progressively weak and describes her legs as feeling like "noodles." She was unable to continue walking. She also developed weakness in her upper extremities. She had diffuse coarse tremors with any effort to exert. Symptoms are greater on the right than the left. She also reports losing feeling in the right arm. She feels like the right arm wants to contract. She had a similar episode about a month ago that resolved on its own. She denies any drug or alcohol use. She does smoke. She reports taking her usual medications of Robaxin, Mobic, and gabapentin this morning. She denies taking any extra or possibly accidentally doubling the dose. She denies any other prescription or nonprescription medications or drugs. She also reports having a fall with multiple injuries back in September. She did not receive medical attention but did file a work comp case. Patient additionally describes some fuzziness in her vision. She denies any loss of consciousness. Initial NIH stroke score was 4. Fingerstick blood sugar was 138 for EMS. Allergies and Home Medications Allergies Coded Allergies: No Known Drug Allergies (Unverified , 04/19/11) Patient Home Medication List Home Medication List Reviewed: Yes Amitriptyline HCl (Amitriptyline HCl) 100 Mg Tablet, 100 MG PO DAILY, (Reported) Entered as Reported by: JERMAINE HWANG on 01/09/22 8444 Last Action: Reviewed Ceftriaxone Na/Dextrose,Iso (Ceftriaxone 1 gm Piggyback) 1 Gm/50 Ml Froz.piggy, 1 GM IV DAILY Prescribed by: MANDI TUTTLE on 01/09/22 1536 Duloxetine HCl (Duloxetine HCl) 30 Mg Capsule.dr, 30 MG PO DAILY, (Reported) Entered as Reported by: JERMAINE HWANG on 01/09/22 1504 Last Action: Reviewed Gabapentin (Gabapentin) 600 Mg Tablet, 600 MG PO TID, (Reported) Entered as Reported by: JERMAINE HWANG on 01/09/22 1459 Last Action: Reviewed Meloxicam (Mobic) 7.5 Mg Tablet, 7.5 MG PO BID, (Reported) Entered as Reported by: JERMAINE HWANG on 01/09/22 1504 Last Action: Reviewed Tizanidine HCl (Tizanidine HCl) 4 Mg Tablet, 4 MG PO TID PRN for MUSCLE SPASMS, (Reported) Entered as Reported by: JERMAINE HWANG on 01/09/22 1504 Last Action: Reviewed Discontinued Medications Cyclobenzaprine HCl (Cyclobenzaprine HCl) 10 Mg Tablet, 10 MG PO Q8H PRN for SPASMS Prescribed by: SINAI HINES on 08/22/212050 Last Action: Discontinued Duloxetine HCl (Cymbalta) 60 Mg Capsule.dr, 60 MG PO, (Reported) Discontinued Reason: Prescription changed Entered as Reported by: VIN DIAZ on 10/16/17 1237 Escitalopram Oxalate (Lexapro) 20 Mg Tablet, 20 MG PO, (Reported) Entered as Reported by: VIN DIAZ on 10/16/17 1237 Last Action: Discontinued Gabapentin (Gabapentin) 300 Mg Capsule, 300 MG PO TID, (Reported) Discontinued Reason: Prescription changed Entered as Reported by: VIN DIAZ on 10/16/17 1237 Hydrocodone Bit/Acetaminophen (Lortab 5 Mg Tablet) 1 Tab Tab, 1 TAB PO, (Reported) Entered as Reported by: VIN DIAZ on 10/16/17 1237 Last Action: Discontinued Methocarbamol (Robaxin-750) 750 Mg Tablet, 750 MG PO Q4H PRN for BACK PAIN Prescribed by: DERECK KING on 05/23/18 1120 Last Action: Discontinued Prednisone (Prednisone) 20 Mg Tab, 40 MG PO DAILY Prescribed by: DERECK KING on 05/23/18 1120 Last Action: Discontinued Review of Systems Review of Systems Constitutional: see HPI, weakness Eyes: See HPI Ears, Nose, Mouth, Throat: no symptoms reported Respiratory: no symptoms reported Cardiovascular: no symptoms reported Gastrointestinal: no symptoms reported Genitourinary: no symptoms reported : No Musculoskeletal: see HPI Skin: see HPI Psychiatric/Neurological: See HPI Endocrine: No Symptoms Reported Hematologic/Lymphatic: No Symptoms Reported Past Jftftiv-Zyejyi-Ofkkhi Hx Patient Social History Tobacco Use?: Yes Tobacco type used: Cigarettes Smoking Status: Current Everyday Smoker Use of E-Cig and/or Vaping dev: No Substance use?: No Alcohol Use?: No Immunizations Up To Date Influenza Vaccine Up-to-Date: No; Not Current Seasonal Allergies Seasonal Allergies: No Past Medical History Surgeries: No Respiratory: No Cardiac: No Genitourinary: No Gastrointestinal: No Musculoskeletal: No Endocrine: No HEENT: No Cancer: No Psychosocial: No Integumentary: No Blood Disorders: No Adverse Reaction/Blood Tranf: No Physical Exam Vital Signs Vital Signs - First Documented 01/08/22 13:34 Temp 35.7 Pulse 75 Resp 20 B/P (MAP) 119/71 (87) Pulse Ox 96 Capillary Refill : Height, Weight, BMI Height: 5'2.00" Weight: 185lbs. oz. 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 Speech sluggish but not truly dysarthric or aphasic) Coordination/Gait: ABN nose to finger (R) (Large amplitude tremors), ABN nose to finger (L) (Large amplitude tremors) Motor/Sensory: sensory deficit (Numbness to the right arm), weak motor strength RUE (Greater than left), weak motor strength LUE, weak motor strength RLE (Greater than left), weak motor strength LLE Skin: normal color, warm/dry Stroke NIH Stroke Scale Assessment Select: Initial Level of Consciousness: 0=Alert (0), Level of Consciousness- Questions: 0=Answers both month/age (0), LOC Commands: 0=Performs both tasks (0), Gaze: Normal (0), Visual Gonzalez: 0=No visual loss (0), Facial Movement (Facial Paresis): 0=Normal symmetrical mnt (0), Motor Function-Arms Right: 0=No drift (0), Motor Function-Arms Left: 0=No drift (0), Motor Function-Legs Right: 1=Drift (1), Motor Function-Legs Left: 0=No drift (0), Limb Ataxia: 2=Present in two limbs (2), Sensory: 1=Mild to Moderate loss (1), Best Language: 0=No aphasia (0), Dysarthria: 0=Normal (0), Extinction & Inattention: 0=No abnormality (0), Total: 4 Progress/Results/Core Measures Results/Orders Lab Results Laboratory Tests Test 01/08/22 13:41 01/08/22 13:45 01/08/22 14:45 Range/Units Glucometer 126 H 70-110 MG/DL White Blood Count 5.3 4.3-11.0 10^3/uL Red Blood Count 4.16 3.80-5.11 10^6/uL Hemoglobin 12.4 11.5-16.0 g/dL Hematocrit 37 35-52 % Mean Corpuscular Volume 90 80-99 fL Mean Corpuscular Hemoglobin 30 25-34 pg Mean Corpuscular Hemoglobin Concent 33 32-36 g/dL Red Cell Distribution Width 13.7 10.0-14.5 % Platelet Count 174 130-400 10^3/uL Mean Platelet Volume 10.3 9.0-12.2 fL Immature Granulocyte % (Auto) 0 % Neutrophils (%) (Auto) 47 42-75 % Lymphocytes (%) (Auto) 40 12-44 % Monocytes (%) (Auto) 10 0-12 % Eosinophils (%) (Auto) 3 0-10 % Basophils (%) (Auto) 1 0-10 % Neutrophils # (Auto) 2.5 1.8-7.8 10^3/uL Lymphocytes # (Auto) 2.1 1.0-4.0 10^3/uL Monocytes # (Auto) 0.5 0.0-1.0 10^3/uL Eosinophils # (Auto) 0.1 0.0-0.3 10^3/uL Basophils # (Auto) 0.1 0.0-0.1 10^3/uL Immature Granulocyte # (Auto) 0.0 0.0-0.1 10^3/uL Prothrombin Time 13.0 12.2-14.7 SEC INR Comment 0.9 0.8-1.4 Activated Partial Thromboplast Time 27 24-35 SEC D-Dimer 0.32 0.00-0.49 UG/ML Sodium Level 140 135-145 MMOL/L Potassium Level 4.5 3.6-5.0 MMOL/L Chloride Level 106 98-107 MMOL/L Carbon Dioxide Level 22 21-32 MMOL/L Anion Gap 12 5-14 MMOL/L Blood Urea Nitrogen 15 7-18 MG/DL Creatinine 0.85 0.60-1.30 MG/DL Estimat Glomerular Filtration Rate 83 BUN/Creatinine Ratio 18 Glucose Level 112 H 70-105 MG/DL Calcium Level 9.2 8.5-10.1 MG/DL Corrected Calcium 9.0 8.5-10.1 MG/DL Total Bilirubin 0.3 0.1-1.0 MG/DL Aspartate Amino Transf (AST/SGOT) 20 5-34 U/L Alanine Aminotransferase (ALT/SGPT) 19 0-55 U/L Alkaline Phosphatase 93 40-136 U/L Troponin I < 0.028 <0.028 NG/ML Total Protein 7.0 6.4-8.2 GM/DL Albumin 4.2 3.2-4.5 GM/DL TSH [place] Testing 2.77 0.35-4.94 UIU/ML Salicylates Level < 5.0 L 5.0-20.0 MG/DL Acetaminophen Level < 10 L 10-30 UG/ML Serum Alcohol < 10 <10 MG/DL Urine Color YELLOW Urine Clarity SL CLOUDY Urine pH 7.0 5-9 Urine Specific [place] <=1.005 1.016-1.022 Urine Protein NEGATIVE NEGATIVE Urine Glucose (UA) NEGATIVE NEGATIVE Urine Ketones NEGATIVE NEGATIVE Urine Nitrite POSITIVE H NEGATIVE Urine Bilirubin NEGATIVE NEGATIVE Urine Urobilinogen 0.2 < = 1.0 MG/DL Urine Leukocyte Esterase NEGATIVE NEGATIVE Urine RBC (Auto) NEGATIVE NEGATIVE Urine RBC NONE /HPF Urine WBC 5-10 H /HPF Urine Squamous Epithelial Cells 2-5 /HPF Urine Renal Epithelial Cells NONE /HPF Urine Crystals NONE /LPF Urine Bacteria LARGE H /HPF Urine Casts NONE /LPF Urine Mucus NEGATIVE /LPF Urine Culture Indicated YES Urine Opiates Screen NEGATIVE NEGATIVE Urine Oxycodone Screen NEGATIVE NEGATIVE Urine Methadone Screen NEGATIVE NEGATIVE Urine Propoxyphene Screen NEGATIVE NEGATIVE Urine Barbiturates Screen NEGATIVE NEGATIVE Ur Tricyclic Antidepressants Screen NEGATIVE NEGATIVE Urine Phencyclidine Screen NEGATIVE NEGATIVE Urine Amphetamines Screen NEGATIVE NEGATIVE Urine Methamphetamines Screen NEGATIVE NEGATIVE Urine Benzodiazepines Screen NEGATIVE NEGATIVE Urine Cocaine Screen NEGATIVE NEGATIVE Urine Cannabinoids Screen POSITIVE H NEGATIVE My Orders Orders - ADRIANO ROSENBERG MD Vital Signs Stroke Patient Q15M (01/08/22 13:50) Ct Head Wo-R/O Stroke (01/08/22 13:50) Monitor-Rhythm Ecg Trace Only (01/08/22 13:50) Dysphagia Screening Tool Q10MX1 (01/08/22 13:50) Cbc With Automated Diff (01/08/22 13:51) Protime With Inr (01/08/22 13:51) Partial Thromboplastin Time (01/08/22 13:51) Comprehensive Metabolic Panel (01/08/22 13:51) Fibrin Degradation Products (01/08/22 13:51) Troponin I [place] (01/08/22 13:51) Ua Culture If Indicated (01/08/22 13:51) Chest 1 View, Ap/Pa Only (01/08/22 13:51) Catheter(Urinary) Insert & Ass 03,15 (01/08/22 13:51) Ekg Tracing (01/08/22 13:51) Nothing By Mouth (01/08/22 Lunch) Accucheck Stat ONCE (01/08/22 13:51) Ed Iv/Invasive Line Start (01/08/22 13:51) Vital Signs Stroke Patient Q15M (01/08/22 13:51) O2 (01/08/22 13:51) Intake & Output (01/08/22 13:51) Dysphagia Screening Tool Q10MX1 (01/08/22 13:51) Post Thrombolytic Adminstratio (01/08/22 13:51) Lipid Panel (01/09/22 06:00) Ct Angio Head/Neck (01/08/22 13:53) Iohexol Injection (Omnipaque 350 Mg/Ml 1 (01/08/22 14:15) Ns (Ivpb) (Sodium Chloride 0.9% Ivpb Bag (01/08/22 14:15) Acetaminophen (01/08/22 14:12) Alcohol (01/08/22 14:12) Drug Screen Stat (Urine) (01/08/22 14:12) Salicylate (01/08/22 14:12) Thyroid Analyzer (01/08/22 14:12) Urine Culture (01/08/22 14:45) Ceftriaxone 1 Gm Pre-Mix (Rocephin 1 Gm (01/08/22 15:15) Lactated Ringers (Lr 1000 Ml Iv Solution (01/08/22 15:30) Medications Given in ED Current Medications Medications Dose Ordered Sig/[place] Route Start Time Stop Time Status Last Admin Dose Admin Iohexol 100 ml ONCE ONCE IV 01/08/22 14:15 01/08/22 14:16 DC 01/08/22 14:10 75 ML Lactated Ringer's 1,000 ml @ 0 mls/hr Q0M ONCE IV 01/08/22 15:30 01/08/22 15:31 DC 01/08/22 15:35 0 MLS/HR Sodium Chloride 100 ml ONCE ONCE IV 01/08/22 14:15 01/08/22 14:16 DC 01/08/22 14:10 80 ML Vital Signs/I&O 01/08/22 13:34 Temp 35.7 Pulse 75 Resp 20 B/P (MAP) 119/71 (87) Pulse Ox 96 Blood Pressure Mean: 87 [facility]SB[facility] Bedside Testing Finger Stick Blood Glucose: 126 Blood Glucose Action Taken: NOTIFIED Progress Progress Note : Time: 18:21 Progress Note Patient was promptly seen and evaluated. Stroke activation was paged. She was accompanied to CT scan and CT was reviewed at 1355. No hemorrhage or mass was identified. We then proceeded with CT angiogram which also showed no acute abnormalities. Case was discussed with Dr. Graham, stroke neurologist at [facility]. We both agreed that this does not sound like a definitive stroke given the bilateral nature and diffuse features. This seems to be more of a toxic or metabolic effect or some type of encephalopathy. Medication reaction or substance ingestion remain within the differential. Dr. Graham and I agree that thrombolytic therapy is not indicated in this case. Symptoms have shown some improvement and this is not a clear presentation of stroke. Additionally, patient does not appear to have any disabling deficits. She is able to move all of her extremities and is able to walk. She does have some toe dragging, right greater than left but can independently and safely walk. Deficits have continued to be diffuse but worse on the right. Patient initially stated she was feeling better but then felt worse again by around 1800. Sensation in the right upper extremity returned although she has some paresthesia described as feeling cold. The stroke neurologist recommended observing for a few hours and obtaining MRI if symptoms did not completely resolve to baseline. Since patient is still symptomatic, we will admit her and obtain an MRI in the morning. Case was discussed with Dr. Hwang who is agreeable to admission. Aspirin will be given if she passes the dysphagia screen. Initial ECG Impression Date: Jan 08, 2022 Initial ECG Impression Time: 14:10 Initial ECG Rate: 73 Initial ECG Rhythm: Normal Sinus Initial ECG Intervals: Normal Comment Normal sinus rhythm with no ST elevation or depression. No abnormal intervals or axis deviation. Diagnostic Imaging Diagonstic Imaging: CT Plain Films/CT/US/NM/MRI: head Comments CT head viewed by me and report reviewed. See report below: NAME: MEAGAN KABA [facility] REC#: [id number] PT STATUS: REG ER : 1970 PHYSICIAN: ADRIANO ROSENBERG MD ADMIT DATE: 01/08/22/ER Signed Date of Exam:01/08/22 CT HEAD WO-R/O STROKE EXAMINATION: CT head without contrast. TECHNIQUE: Multiple contiguous axial images were obtained through the brain without the use of intravenous contrast. All CT scans use one or more of the following dose optimizing techniques: automated exposure control, MA and/or KvP adjustment based on patient size and exam type or iterative reconstruction. HISTORY: Slurred speech. Right arm numbness. Dizziness. Concern for acute ischemia. COMPARISON: 10/26/2017. FINDINGS: No large acute territorial ischemia, mass, or hemorrhage. No midline shift or mass effect. The ventricles, cortical sulci, and basilar cisterns are patent and unremarkable. The orbits are normal. Paranasal sinuses are normal. Small amount of fluid is seen in the left mastoid air cells. No soft tissue abnormality is seen. No osseus lesions or fractures are seen. IMPRESSION: 1. No large acute territorial ischemia, mass, or hemorrhage. Dictated by: Dictated on workstation # [id number] Dict: 01/08/22 1413 Trans: 01/08/22 1419 [facility] [id number] Interpreted by: SOLA BONDS DO Electronically signed by: SOLA BONDS DO 01/08/22 1419 Diagonstic Imaging: Xray Plain Films/CT/US/NM/MRI: chest Comments NAME: MEAGAN KABA MED REC#: [id number] PT STATUS: ADM [place] : 1970 PHYSICIAN: ADRIANO ROSENBERG MD ADMIT DATE: 01/08/22/CSD Signed Date of Exam:01/08/22 CHEST 1 VIEW, AP/PA ONLY INDICATION: Stroke. COMPARISON: 10/16/2017. FINDINGS: Single frontal view of the chest demonstrates normal heart size and pulmonary vascularity. The lungs are well aerated and clear. No large pleural effusion or pneumothorax is seen. The visualized osseous structures show no acute abnormalities. IMPRESSION: 1. No acute cardiopulmonary process. Dictated by: Dictated on workstation # [id number] Dict: 01/08/22 1459 Trans: 01/09/22 0859 [id number] Interpreted by: NANY DE LA FUENTE MD Electronically signed by: NANY DE LA FUENTE MD 01/09/22 0859 Diagonstic Imaging: CT Plain Films/CT/US/NM/MRI: other (Angiogram head and neck) Comments CT angiogram head and neck viewed by me and report reviewed. See report below: NAME: MEAGAN KABA MED REC#: [id number] PT STATUS: REG ER : 1970 PHYSICIAN: ADRIANO ROSENBERG MD ADMIT DATE: 01/08/22/ER Signed Date of Exam:01/08/22 CT ANGIO HEAD/NECK PROCEDURE: CT angiography of the head and CT angiography of the neck with and without contrast. TECHNIQUE: Contiguous noncontrast images were obtained from the skull base through the vertex. After intravenous contrast administration, helical CT angiography of the neck was performed. Source data was reformatted into 3D MIP projections. Delayed post contrast acquisition was also obtained. Auto Exposure Controls were utilized during the CT exam to meet ALARA standards for radiation dose reduction. INDICATION: Right-sided weakness. Slurred speech. Dizziness. Concern for acute ischemia. Comparison: CT head performed earlier the same date. FINDINGS: CTA Neck: The visualized portions of the aortic arch demonstrate no evidence of aneurysm or dissection. There is conventional branching pattern of the great vessels of the aorta. The brachiocephalic artery is normal in course and caliber. The right and left common carotid origins are unremarkable. The origin of the left subclavian artery is patent. The common carotid arteries and internal carotid arteries demonstrate a normal course. No stenosis or dissection in the carotid systems. The external carotid arteries are patent and unremarkable. The vertebral arteries are codominant. The origin of the right vertebral artery is seen and is unremarkable. The origin of the left vertebral artery is seen and is unremarkable. There is no focal stenosis seen within the neck. There is no dissection. The vertebral arteries are well visualized to up to the level of the basilar artery. No acute fractures seen in the cervical spine. High-grade spinal canal stenosis is visualized at the C4-C5 level. Included views through the lung apices demonstrate no focal consolidation. CTA brain: The intracranial portion of the bilateral ICA have a normal appearance without stenosis or aneurysm. No stenosis is seen in the bilateral anterior, middle, and posterior cerebral arteries. No evidence of aneurysm the hughes [place]. In the posterior circulation, both of the vertebral arteries demonstrate normal opacification. Both the right and left PICA arteries are identified. The basilar artery is normal in course and caliber. The terminal branch vessels including the superior cerebellar arteries unremarkable. IMPRESSION: 1. No stenosis or aneurysm in the [place]. No evidence of large vessel occlusion. 2. No stenosis or dissection the bilateral carotid and vertebral arteries. 3. High-grade stenosis in the cervical spine at the C4-C5 level. Dictated by: Dictated on workstation # [id number] Dict: 01/08/22 1414 Trans: 01/08/22 1438 [facility] [id number] Interpreted by: SOLA BONDS DO Electronically signed by: SOLA BONDS DO 01/08/22 1438 Departure Communication (Admissions) Time/Spoke to Admitting Phy: 18:15 Dr. Hwang Impression Primary Impression: Generalized weakness Additional Impressions: Urinary tract infection Qualified Codes: N39.0 - Urinary tract infection, site not specified Right arm numbness Disposition: ADMITTED INPATIENT Condition: Stable Admissions Decision to Admit Reason: Admit from ER (General) Decision to Admit/Date: Jan 08, 2022 Time/Decision to Admit Time: 18:15 Departure-Patient Inst. Referrals: [facility] (PCP) Primary Care Physician DYLON BERNAL (Family) Primary Care Physician Scripts Ceftriaxone Na/Dextrose,Iso (Ceftriaxone 1 gm Piggyback) 1 Gm/50 Ml Froz.piggy 1 GM IV DAILY for 2 Days, UNIT Prov: MANDI TUTTLE DO 01/09/22 ADRIANO ROSENBERG MD Jan 08, 2022 18:25
[2022-01-08] MEDS ORDERED: ASPIRIN 325 MG (5 GR) TABLET PO ONE (18:30)
[2022-01-08 20:00] VITALS: BP 106/71
[2022-01-08] MEDS ORDERED: ONDANSETRON 4 MG/2 ML (SDV) Z0FRAN IV PRN (22:30)
[2022-01-08] MEDS: LACTATED RINGERS 1,000 ML IV SCH (22:33)
[2022-01-08 23:45] VITALS: BP 115/58
[2022-01-09 04:15] VITALS: BP 98/53
[2022-01-09] MEDS: LACTATED RINGERS 1,000 ML IV SCH (05:37)
[2022-01-09] MEDS ORDERED: IBUPROFEN 600 MG (MOTRIN) TAB PO ONE (05:49)
[2022-01-09] MEDS: IBUPROFEN 600 MG (MOTRIN) TAB PO PRN ×3 (05:51→14:19)
[2022-01-09 05:56] LABS: BASOPHILS # (AUTO) 0.1 10^3/uL (0.0-0.1); BASOPHILS % (AUTO) 2 % (0-10); EOSINOPHILS # (AUTO) 0.1 10^3/uL (0.0-0.3); EOSINOPHILS % (AUTO) 2 % (0-10); HEMATOCRIT 37 % (35-52); HEMOGLOBIN 11.9 g/dL (11.5-16.0); LYMPHOCYTES % (AUTO) 51 % (12-44); MEAN CORPUSCULAR HEMOGLOBIN 29 pg (25-34); MEAN CORPUSCULAR HGB CONC 33 g/dL (32-36); MEAN CORPUSCULAR VOLUME 90 fL (80-99); MEAN PLATELET VOLUME 10.5 fL (9.0-12.2); MONOCYTES # (AUTO) 0.6 10^3/uL (0.0-1.0); MONOCYTES % (AUTO) 10 % (0-12); NEUTROPHILS # (AUTO) 2.1 10^3/uL (1.8-7.8); NEUTROPHILS % (AUTO) 35 % (42-75); PLATELET COUNT 181 10^3/uL (130-400); WHITE BLOOD COUNT 5.9 10^3/uL (4.3-11.0)
[2022-01-09 06:14] LABS: POTASSIUM 3.9 MMOL/L (3.6-5.0)
[2022-01-09 06:16] LABS: CALCIUM 8.8 MG/DL (8.5-10.1)
[2022-01-09 06:20] LABS: CREATININE SERUM 0.77 MG/DL (0.60-1.30)
[2022-01-09 08:05] VITALS: BP 105/63
[2022-01-09] MEDS ORDERED: ASPIRIN E.C. 81 MG (ECOTRIN) TAB PO SCH (09:00)
--- NOTE | 2022-01-09 09:21 | History & Physical ---
HPI History of Present Illness: July fell on her right side at the [facility] and has had different things happen since then. 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 Backs of legs and bottom of feet feel like they are on fire. She did not pass out, she walked outside to try to get fresh air. Today she feels sluggish, like she had a "bad weekend". Had nausea yesterday when this occurred and after, vomited after getting to the hospital. Source: patient Date seen by provider: Jan 09, 2022 Time Seen by Provider: 09:17 Attending Physician Jermaine Viramontes MD [facility] Consult Date of Admission Jan 08, 2022 at 18:34 Home Medications Home Medications Reviewed patient Home Medication Reconciliation performed by pharmacy medication reconciliations dental laboratory technician apprentice and/or nursing. Patients Allergies have been reviewed. 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: MODERNA Past Medical History PMHx: Fibromyalgia SurgHx: Gastric bypass Family Medical History Significant Family History: No Pertinent Family Hx Review of Systems ([facility]C) Constitutional: No fever; malaise, weakness (legs and right arm) EENTM: No nose congestion, No throat pain Respiratory: No cough, No short of breath Cardiovascular: No chest pain, No palpitations Gastrointestinal: No abdominal pain, No constipation, No diarrhea; nausea, vomiting Genitourinary: No dysuria, No incontinence Musculoskeletal: joint pain (lower back and knees and ankles and right elbow and right shoulder), muscle pain (chronic) Skin: No rash Psychiatric/Neurological: Denies Anxiety, Denies Depressed Reviewed Test Results Reviewed Test Results Lab Laboratory Tests Test 01/08/22 13:41 01/08/22 13:45 01/08/22 14:45 01/09/22 05:35 Range/Units Glucometer 126 H 70-110 MG/DL White Blood Count 5.3 5.9 4.3-11.0 10^3/uL Red Blood Count 4.16 4.06 3.80-5.11 10^6/uL Hemoglobin 12.4 11.9 11.5-16.0 g/dL Hematocrit 37 37 35-52 % Mean Corpuscular Volume 90 90 80-99 fL Mean Corpuscular Hemoglobin 30 29 25-34 pg Mean Corpuscular Hemoglobin Concent 33 33 32-36 g/dL Red Cell Distribution Width 13.7 13.7 10.0-14.5 % Platelet Count 174 181 130-400 10^3/uL Mean Platelet Volume 10.3 10.5 9.0-12.2 fL Immature Granulocyte % (Auto) 0 0 % Neutrophils (%) (Auto) 47 35 L 42-75 % Lymphocytes (%) (Auto) 40 51 H 12-44 % Monocytes (%) (Auto) 10 10 0-12 % Eosinophils (%) (Auto) 3 2 0-10 % Basophils (%) (Auto) 1 2 0-10 % Neutrophils # (Auto) 2.5 2.1 1.8-7.8 10^3/uL Lymphocytes # (Auto) 2.1 3.0 1.0-4.0 10^3/uL Monocytes # (Auto) 0.5 0.6 0.0-1.0 10^3/uL Eosinophils # (Auto) 0.1 0.1 0.0-0.3 10^3/uL Basophils # (Auto) 0.1 0.1 0.0-0.1 10^3/uL Immature Granulocyte # (Auto) 0.0 0.0 0.0-0.1 10^3/uL Prothrombin Time 13.0 12.2-14.7 SEC INR Comment 0.9 0.8-1.4 Activated Partial Thromboplast Time 27 24-35 SEC D-Dimer 0.32 0.00-0.49 UG/ML Sodium Level 140 142 135-145 MMOL/L Potassium Level 4.5 3.9 3.6-5.0 MMOL/L Chloride Level 106 107 98-107 MMOL/L Carbon Dioxide Level 22 22 21-32 MMOL/L Anion Gap 12 13 5-14 MMOL/L Blood Urea Nitrogen 15 11 7-18 MG/DL Creatinine 0.85 0.77 0.60-1.30 MG/DL Estimat Glomerular Filtration Rate 83 94 BUN/Creatinine Ratio 18 14 Glucose Level 112 H 81 70-105 MG/DL Calcium Level 9.2 8.8 8.5-10.1 MG/DL Corrected Calcium 9.0 8.5-10.1 MG/DL Total Bilirubin 0.3 0.1-1.0 MG/DL Aspartate Amino Transf (AST/SGOT) 20 5-34 U/L Alanine Aminotransferase (ALT/SGPT) 19 0-55 U/L Alkaline Phosphatase 93 40-136 U/L Troponin I < 0.028 <0.028 NG/ML Total Protein 7.0 6.4-8.2 GM/DL Albumin 4.2 3.2-4.5 GM/DL TSH [place]ler Testing 2.77 0.35-4.94 UIU/ML Salicylates Level < 5.0 L 5.0-20.0 MG/DL Acetaminophen Level < 10 L 10-30 UG/ML Serum Alcohol < 10 <10 MG/DL Urine Color YELLOW Urine Clarity SL CLOUDY Urine pH 7.0 5-9 Urine Specific Aiken <=1.005 1.016-1.022 Urine Protein NEGATIVE NEGATIVE Urine Glucose (UA) NEGATIVE NEGATIVE Urine Ketones NEGATIVE NEGATIVE Urine Nitrite POSITIVE H NEGATIVE Urine Bilirubin NEGATIVE NEGATIVE Urine Urobilinogen 0.2 < = 1.0 MG/DL Urine Leukocyte Esterase NEGATIVE NEGATIVE Urine RBC (Auto) NEGATIVE NEGATIVE Urine RBC NONE /HPF Urine WBC 5-10 H /HPF Urine Squamous Epithelial Cells 2-5 /HPF Urine Renal Epithelial Cells NONE /HPF Urine Crystals NONE /LPF Urine Bacteria LARGE H /HPF Urine Casts NONE /LPF Urine Mucus NEGATIVE /LPF Urine Culture Indicated YES Urine Opiates Screen NEGATIVE NEGATIVE Urine Oxycodone Screen NEGATIVE NEGATIVE Urine Methadone Screen NEGATIVE NEGATIVE Urine Propoxyphene Screen NEGATIVE NEGATIVE Urine Barbiturates Screen NEGATIVE NEGATIVE Ur Tricyclic Antidepressants Screen NEGATIVE NEGATIVE Urine Phencyclidine Screen NEGATIVE NEGATIVE Urine Amphetamines Screen NEGATIVE NEGATIVE Urine Methamphetamines Screen NEGATIVE NEGATIVE Urine Benzodiazepines Screen NEGATIVE NEGATIVE Urine Cocaine Screen NEGATIVE NEGATIVE Urine Cannabinoids Screen POSITIVE H NEGATIVE Triglycerides Level 71 <150 MG/DL Cholesterol Level 188 < 200 MG/DL LDL Cholesterol Direct 125 1-129 MG/DL VLDL Cholesterol 14 5-40 MG/DL HDL Cholesterol 57 40-60 MG/DL Radiology 01/08/[address] IMPRESSION: 1. No large acute territorial ischemia, mass, or hemorrhage. Physical Exam-([facility]) Physical Exam Vital Signs VS - Last 72 Hours, by Label 01/08/22 01/08/22 01/08/22 01/08/22 13:34 19:00 19:30 19:43 Temp 35.7 Pulse 75 65 71 Resp 20 20 B/P (MAP) 119/71 (87) 123/59 Pulse Ox 96 99 96 O2 Delivery Room Air 01/08/22 01/08/22 01/08/22 01/09/22 20:00 21:30 23:45 00:03 Temp 36.9 36.7 Pulse 71 73 Resp 18 16 B/P (MAP) 106/71 (83) 115/58 (77) Pulse Ox 93 93 93 O2 Delivery Room Air Room Air Room Air Room Air 01/09/22 01/09/22 01/09/22 01/09/22 00:39 04:15 04:15 07:00 Temp 36.4 Pulse 74 92 63 Resp 18 B/P (MAP) 98/53 (68) Pulse Ox 97 97 O2 Delivery Room Air Room Air 01/09/22 01/09/22 01/09/22 01/09/22 08:05 08:10 11:54 12:30 Temp 36.4 36.4 Pulse 78 64 Resp 18 18 B/P (MAP) 105/63 (77) 108/73 (85) Pulse Ox 97 97 99 O2 Delivery Room Air Room Air Room Air Room Air 01/09/22 12:48 Pulse 71 Capillary Refill : General Appearance: WD/WN, no apparent distress HEENT: PERRL/EOMI Respiratory: lungs clear, normal breath sounds Cardiovascular: regular rate, rhythm, no murmur Gastrointestinal: normal bowel sounds, non tender, soft Extremities: no pedal edema (edema in hands) Neurologic/Psychiatric: creative services designer II-XII nml as tested, alert, normal mood/affect, oriented x 3; No abnormal cerebellar tests; motor weakness (Right arm abduction 4/5, right carbide grinder strength 3/5- unable to tightly close fist, right hip flexion 3/5) Skin: normal color, warm/dry Assessment/Plan Assessment/Plan Admission Status: Observation (1) Right sided weakness Status: Acute Assessment & Plan: CT head and CTA head without intracranial abnormalities, but CTA did show spinal canal stenosis in cervical spine, will obtain MRI cervical spine along with already ordered MRI brain, with MRI lumbar spine as well given lumbar pain. (2) Altered mental status Status: Resolved Assessment & Plan: Uncertain etiology, imaging as above. Improved. Qualifiers: Qualified Codes: R40.0 - Somnolence (3) Urinary tract infection Status: Acute Assessment & Plan: Ceftriaxone Qualifiers: Qualified Codes: N39.0 - Urinary tract infection, site not specified (4) Right arm numbness Status: Acute (5) Back pain of lumbosacral region with sciatica Status: Acute JERMAINE VIRAMONTES MD Jan 09, 2022 09:20
--- NOTE | 2022-01-09 10:58 | Diagnostic Imaging Report ---
PROCEDURE: MR imaging of the brain without contrast. TECHNIQUE: Multiplanar, multisequence MR imaging of the brain was performed without contrast. INDICATION: Right-sided weakness. Correlation is made with prior MRI of the brain from 07/26/2018. No diffusion restriction is identified. The normal expected flow-voids within the carotid siphons are seen. Ventricles and sulci are within normal limits. There is no midline shift. No acute intra-axial or extra-axial hemorrhage is detected. Corpus callosum is unremarkable. Sella and parasellar structures are unremarkable. IMPRESSION: Unremarkable noncontrast MRI of the brain. No acute feature is detected. Dictated by: Dictated on workstation # [id number]
--- NOTE | 2022-01-09 11:27 | Diagnostic Imaging Report ---
PROCEDURE: MRI lumbar spine. TECHNIQUE: Multiplanar, multisequence MRI of the lumbar spine was performed without contrast. INDICATION: Right weakness. COMPARISON: 07/23/2018. FINDINGS: Lumbar spinal curvature and alignment are stable and unremarkable. Vertebral body heights are maintained with probable Schmorl's node within the superior endplate of T12. Conus medullaris is unremarkable at the L1 level. At L2-L3, there is mild annular disc bulging with associated degenerative facet arthropathy. This results in no significant stenosis. At the L3-L4 level, there is diffuse disc bulging with ligamentum flavum hypertrophy which causes mild trefoil-type spinal stenosis and bilateral neural foraminal stenosis. At L4-L5, there is significant diffuse disc bulging with central annular tear and protrusion resulting in moderate spinal and bilateral neural foraminal stenosis. At L5-S1, there is diffuse disc bulging with endplate spurring. This is somewhat greater on the left resulting in moderate neural foraminal stenosis on the right and moderately severe left neural foraminal stenosis. There is no evidence of marrow signal abnormality to indicate an acute fracture. IMPRESSION: Diffuse lumbar spondylosis with degenerative disc disease, most pronounced at the L4-L5 and L5-S1 levels. This does result in moderate spinal and bilateral neural foraminal stenosis at L4-L5 with moderate right and moderately severe left neural foraminal stenosis at L5-S1. Dictated by: Dictated on workstation # [id number]
--- NOTE | 2022-01-09 11:45 | Diagnostic Imaging Report ---
PROCEDURE: MR imaging cervical spine without contrast. TECHNIQUE: Multiplanar, multisequence MR imaging of the cervical spine was performed without contrast. INDICATION: Right-sided weakness. Fall 6 months ago. Neck pain. COMPARISON: None. FINDINGS: Grade 1 retrolisthesis of C4 on C5. Alignment is otherwise normal. Vertebral body heights are preserved. Normal bone marrow signal. Abnormal T2 signal in the cervical spinal cord at C4-C5 likely due to the high-grade stenosis described below. Visualized paravertebral soft tissues are unremarkable. C2-C3: No spinal canal or neural foraminal narrowing. C3-C4: Broad-based disc bulging results in mild spinal canal narrowing. Moderate left and mild right neural foraminal narrowing. C4-C5: Central disc extrusion results in severe spinal canal stenosis. There is also severe bilateral neural foraminal narrowing. C5-C6: Right paracentral disc protrusion results in severe spinal canal stenosis. Severe right and moderate left neural foraminal narrowing. C6-C7: Right paracentral disc protrusion results in moderate spinal canal stenosis. Severe right and moderate left neural foraminal narrowing. C7-T1: No spinal canal or neural foraminal narrowing. There is a small disc protrusion at T2-T3 seen only on the sagittal sequence. This appears to result in no substantial spinal canal narrowing. IMPRESSION: 1. Spondylotic changes result in high-grade spinal canal stenosis with flattening and abnormal signal in the cervical cord at C4-C5 and C5-C6. 2. Multilevel high-grade neural foraminal narrowing detailed above level by level. 3. No acute osseous findings. Dictated by: Dictated on workstation # [id number]
[2022-01-09 11:54] VITALS: BP 108/73
[2022-01-09] MEDS ORDERED: GBPN600T PO (14:59)
[2022-01-09] MEDS ORDERED: MELO-170 PO (15:04)
[2022-01-09] MEDS ORDERED: TIZA-186 PO (15:04)
[2022-01-09] MEDS ORDERED: DULO30CA49 PO (15:04)
[2022-01-09] MEDS ORDERED: AMIT100T2 PO (15:04)
[2022-01-09] MEDS ORDERED: CEFT1FRO2 IV (15:36)
--- NOTE | 2022-01-09 15:37 | Discharge Summary ---
Discharge Summary Hospital Course Was the Problem List Reviewed?: Yes Problems/Dx: (1) Cervical myelopathy Hospital Course Date of Admission: Jan 08, 2022 at 18:34 Admission Diagnosis : Family Physician/Provider: Madi Nuñez Date of Discharge: 01/09/22 Discharge Diagnosis: Severe cervical spine stenosis with myelopathy in need of urgent decompression due to risk of quadriplegia Hospital Course: Patient had a brief hospital course after she was admitted for weakness and work-up for CVA but MRI completed showing no evidence of that but MRI of cervical spine showed severe stenosis so Dr. RESENDEZ was contacted and he reviewed the imaging scan and recommended urgent decompression due to risk for quadriplegia so she was transferred to [place] after I explained the plan to her and the nurse Labs and Pending Lab Test: Laboratory Tests 01/09/22 05:35: White Blood Count 5.9, Red Blood Count 4.06, Hemoglobin 11.9, Hematocrit 37, Mean Corpuscular Volume 90, Mean Corpuscular Hemoglobin 29, Mean Corpuscular Hemoglobin Concent 33, Red Cell Distribution Width 13.7, Platelet Count 181, Mean Platelet Volume 10.5, Immature Granulocyte % (Auto) 0, Neutrophils (%) (Auto) 35L, Lymphocytes (%) (Auto) 51H, Monocytes (%) (Auto) 10, Eosinophils (%) (Auto) 2, Basophils (%) (Auto) 2, Neutrophils # (Auto) 2.1, Lymphocytes # (Auto) 3.0, Monocytes # (Auto) 0.6, Eosinophils # (Auto) 0.1, Basophils # (Auto) 0.1, Immature Granulocyte # (Auto) 0.0, Sodium Level 142, Potassium Level 3.9, Chloride Level 107, Carbon Dioxide Level 22, Anion Gap 13, Blood Urea Nitrogen 11, Creatinine 0.77, Estimat Glomerular Filtration Rate 94, BUN/Creatinine Ratio 14, Glucose Level 81, Calcium Level 8.8, Triglycerides Level 71, Cholesterol Level 188, LDL Cholesterol Direct 125, VLDL Cholesterol 14, HDL Cholesterol 57 Microbiology 01/08/22 Urine Culture - Preliminary, Resulted Escherichia coli Home Meds Active Reported Mobic (Meloxicam) 7.5 Mg Tablet 7.5 Mg PO BID Tizanidine HCl 4 Mg Tablet 4 Mg PO TID PRN Amitriptyline HCl 100 Mg Tablet 100 Mg PO DAILY Duloxetine HCl 30 Mg Capsule.dr 30 Mg PO DAILY Gabapentin 600 Mg Tablet 600 Mg PO TID Assessment/Pt Instructions Chelsie Villalba hospitalist Dr. Yan with Dr. RESENDEZ consult Discharge Planning: <30 minutes discharge planning Discharge Instructions Discharge Diet: No Restrictions Activity as Tolerated: Yes Discharge Physical Examination Vital Signs Vital Signs Date Time Temp Pulse Resp B/P (MAP) Pulse Ox O2 Delivery O2 Flow Rate FiO2 01/09/22 12:48 71 01/09/22 12:30 Room Air 01/09/22 11:54 36.4 18 108/73 (85) 99 General Appearance: No Apparent Distress, WD/WN Allergies: Coded Allergies: No Known Drug Allergies (Unverified , 04/19/11) Discharge Summary Date of Admission Jan 08, 2022 at 18:34 Date of Discharge Discharge Date: Jan 09, 2022 MANDI TUTTLE DO Jan 09, 2022 15:37
[2022-01-09 16:00] VITALS: BP 112/74
[2022-01-09] MEDS ORDERED: cefTRIAXone 1 GM/50 ML (PRE-MIX) IV SCH (16:00)
== END 2022-01-09 17:30 | disposition short-term general hospital (02) ==
LOC: EDUNIT# 13:34 → ER 13:36 → UNDOADMOB 18:34 → CSD 18:34 → UNDODISOB 01-09 17:30
PROVIDERS: ADMIT Family Medicine; ATTEND Family Medicine
DX: M48.02 Spinal stenosis, cervical region (principal); M54.30 Sciatica, unspecified side; G95.9 Disease of spinal cord, unspecified; R41.82 Altered mental status, unspecified; N39.0 Urinary tract infection, site not specified; F17.210 Nicotine dependence, cigarettes, uncomplicated; Z79.899 Other long term (current) drug therapy
CPT/HCPCS: 70450; 70496; 70498; 70551; 71045; 72141; 72148; 80048; 80053; 80061; 80306; 81000; 82947; 84443; 84484; 85025 ×2; 85379; 85610; 85730; 87077; 87088; 87186; 93005; 93041; 96374; 99284; G0378; G0480 ×3; 36415; 80320; 80329